=== PATIENT | male | born 1990 ===

== ENCOUNTER 2018-05-28 17:51 | Emergency (ER) | payer OTHER ==
[2018-05-28 18:21] VITALS: BP 117/72; PULSE 78; RESP 20; TEMP 98.7; O2SAT 99
--- NOTE | 2018-05-28 18:25 | C.PDOC ---
History Of Present Illness 27 year old male presents to the ED for evaluation of left high lateral ankle pain status post minor sprain one week ago. States every time she walks, her ankle makes noises with extreme dorsi flexion. Patient is ambulatory. Denies taking any medications or doing ice therapy. Denies any weakness or numbness. Time Seen by Provider: 05/28/18 18:01 Chief Complaint (Nursing): Lower Extremity Problem/Injury History Per: Patient History/Exam Limitations: no limitations Onset/Duration Of Symptoms: Days Current Symptoms Are (Timing): Still Present Past Medical History Reviewed: Historical Data, Nursing Documentation, Vital Signs Vital Signs: Last Vital Signs Temp 98.7 F 05/28/18 18:00 Pulse 78 05/28/18 18:00 Resp 20 05/28/18 18:00 BP 117/72 05/28/18 18:00 Pulse Ox 99 05/28/18 18:00 - Medical History PMH: No Chronic Diseases Surgical History: No Surg Hx Family History: States: No Known Family Hx - Social History Hx Alcohol Use: No Hx Substance Use: No - Immunization History Hx Tetanus Toxoid Vaccination: No Hx Influenza Vaccination: No Hx Pneumococcal Vaccination: No Review Of Systems Except As Marked, All Systems Reviewed And Found Negative. Musculoskeletal: Positive for: Other (left lateral high ankle pain ) Neurological: Negative for: Weakness, Numbness Physical Exam - Physical Exam Appears: Non-toxic, No Acute Distress Skin: Warm, Dry, No Rash Head: Normacephalic Nose: Normal Oral Mucosa: Moist Cardiovascular: Rhythm Regular Respiratory: Normal Breath Sounds, No Rales, No Rhonchi, No Wheezing Extremity: Other (mild tenderness and swelling to left lateral high ankle above malleolus. ) Pulses: Left Dorsalis Pedis: Normal, Right Dorsalis Pedis: Normal Neurological/Psych: Oriented x3, Normal Speech, Normal Motor, Normal Sensation, Normal Reflexes Gait: Other (minimally antalgic gait) ED Course And Treatment O2 Sat by Pulse Oximetry: 99 (RA) Pulse Ox Interpretation: Normal - Other Rad L ankle X-Ray: Interpreted by Me (neg) Medical Decision Making Medical Decision Making: Plan - Motrin 400mg PO On re-examination, patient is resting comfortably in no acute distress. X-ray shows no fracture/dislocation. Patient reports improvement of symptoms. Patient feels comfortable going home and will be discharged. Patient given follow up instructions. Instructed to return to ER if symptoms worsen or new symptoms arise. Disposition Doctor Will See Patient In The: Office Counseled Patient/Family Regarding: Studies Performed, Diagnosis - Disposition Referrals: [facility] [Outside] [email or web address] [Outside] [facility] [Outside] [facility] [Outside] Disposition: HOME/ ROUTINE Disposition Time: 18:24 Condition: GOOD Additional Instructions: placa normal sigue ibuprofeno 400 mg cada 6 horas maryuri necessario [place] 1/2 hora por hora, nada caliente Sigue con [facility] maryuri necessario Instructions: Ankle Sprain (DC) Forms: [email or web address] (Italian) Print Language: KAZAKH - Clinical Impression Clinical Impression: High ankle sprain of left lower extremity - Scribe Statement The provider has reviewed the documentation as recorded by the Scribe Melonie Ferguson All medical record entries made by the Scribe were at my direction and personally dictated by me. I have reviewed the chart and agree that the record accurately reflects my personal performance of the history, physical exam, medical decision making, and the department course for this patient. I have also personally directed, reviewed, and agree with the discharge instructions and disposition.
--- NOTE | 2018-05-28 18:36 | RAD ---
PROCEDURE: Left Ankle Radiographs. HISTORY: L lateral high ankle sprain 1 wk ago COMPARISON: None available. FINDINGS: BONES: No acute displaced fracture. JOINTS: No dislocation. SOFT TISSUES: Soft tissue swelling. No evidence of radiopaque foreign body. OTHER FINDINGS: None. IMPRESSION: Soft tissue swelling. No acute displaced fracture identified. If symptoms persist or if there is clinical concern, x-ray follow-up in 7-10 days should be considered.
== END 2018-05-28 18:28 | disposition home or self-care (01) ==
LOC: C.ER 17:51
DX: S93.402A Sprain of unspecified ligament of left ankle, initial encounter (principal); X58.XXXA Exposure to other specified factors, initial encounter